=== PATIENT | female | born 1950 | race Caucasian/White ===

== ENCOUNTER 2024-07-04 06:00 | Outpatient (RCR) | payer MEDICARE, SELFPAY | END 2024-08-03 23:59 | disposition home or self-care (01) | LOC: GPT 06:00 | PROVIDERS: Visit Provider Internal Medicine Infectious Disease | DX: M79.645 Pain in left finger(s) (principal); M67.844 Other specified disorders of tendon, left hand | CPT/HCPCS: 97110; 97140; 97162 ==

== ENCOUNTER 2024-08-04 06:30 | Outpatient (RCR) | payer MEDICARE, SELFPAY | END 2024-08-31 23:59 | disposition home or self-care (01) | LOC: GPT 06:30 | PROVIDERS: Visit Provider Internal Medicine Infectious Disease | DX: M79.645 Pain in left finger(s) (principal) | CPT/HCPCS: 97110; 97140; 97164; 97530 ==

== ENCOUNTER 2024-09-01 06:00 | Outpatient (RCR) | payer MEDICARE, SELFPAY | END 2024-10-01 23:59 | disposition home or self-care (01) | LOC: GPT 06:00 | PROVIDERS: Visit Provider Internal Medicine Infectious Disease | DX: M79.645 Pain in left finger(s) (principal) | CPT/HCPCS: 97110; 97112; 97140; 97164 ==

== ENCOUNTER 2024-10-02 05:00 | Outpatient (RCR) | payer MEDICARE, SELFPAY | END 2024-10-31 23:59 | disposition home or self-care (01) | LOC: GPT 05:00 | PROVIDERS: Visit Provider Podiatrist | DX: M76.61 Achilles tendinitis, right leg (principal) | CPT/HCPCS: 97110; 97112; 97161 ==

== ENCOUNTER 2024-11-01 05:00 | Outpatient (RCR) | payer MEDICARE, SELFPAY | END 2024-12-01 23:59 | disposition home or self-care (01) | LOC: GPT 05:00 | PROVIDERS: Visit Provider Podiatrist | DX: M76.61 Achilles tendinitis, right leg (principal) | CPT/HCPCS: 97110; 97112 ==